=== PATIENT | male | born 1980 | race Caucasian/White ===

== ENCOUNTER 2016-07-22 22:15 | Emergency (ER) | payer MEDICAID ==
[~2016-07-22] VITALS: Ht 182.9 cm; Wt 95.3 kg
[2016-07-22 22:20] VITALS: BP 150/90
--- NOTE | 2016-07-22 22:26 | NUR ---
TO ER BED 8
--- NOTE | 2016-07-22 22:28 | NUR ---
PT PRESENTS TO ED WITH C/O SEVERE HEADACHE X3 DAYS. PT IS AAOX4, DENEIS CHEST PAIN, NO SOB/DISTRESS NOTED, CLEAR LUNG SOUNDS, ST ON MONITOR, C/O HEADACHE 10/10, SORE THOAT, AND NAUSEA. SKIN IS WARM AND DRY TO TOUCH, ABLE TO MOVE ALL EXTREMITIES. PT POSITIONED FOR COMFORT, HOB ELEVATED, BEDRAILS UP X2, ER MD MADE AWARE OF PT STATUS.
--- NOTE | 2016-07-22 22:45 | NUR ---
Patient being evaluated by physician at bedside.
[2016-07-22] MEDS ORDERED: KETOROLAC 30 MG/ML VIAL IVP ONE (22:50)
[2016-07-22] MEDS ORDERED: ONDANSETRON 4 MG/2 ML VIAL IVP ONE (22:50)
[2016-07-22] MEDS ORDERED: PENICILLIN G BENZATHINE L-A 1.2 MU/2 ML SYR IM ONE (22:50)
[2016-07-22] MEDS ORDERED: NACL 0.9% 1,000 ML IV ONE ×2 (22:50→23:50)
[2016-07-22] MEDS ORDERED: diphenhydrAMINE 50 MG/ML VIAL IVP ONE (23:30)
[2016-07-22] MEDS ORDERED: METOCLOPRAMIDE 10 MG/2 ML INJ VIAL IVP ONE (23:30)
[2016-07-23 00:20] VITALS: BP 131/69
--- NOTE | 2016-07-23 00:20 | NUR ---
Patient discharged with v/s stable. Written and verbal after care instructions given and explained. Patient alert, oriented and verbalized understanding of instructions. Ambulatory with [facility]IR[facility]END. All questions addressed prior to discharge. ID band removed. IV SITE REMOVED. Patient advised to follow up with PMD. Rx of ZOFRAN, PREDNISONE, NORCO, MOTRIN given. Patient educated on indication of medication including possible reaction and side effects. Opportunity to ask questions provided and answered.
== END 2016-07-23 00:20 | disposition home or self-care (01) ==
LOC: MED 22:15
DX: J11.1 Influenza due to unidentified influenza virus with other respiratory manifestations (principal)
CPT/HCPCS: 96361; 96372; 96374; 96375; 99285; J0561; J1200; J1885; J2405; J2765; J7030

== ENCOUNTER 2023-08-03 00:15 | Emergency (ER) | payer SELFPAY ==
[~2023-08-03] VITALS: Ht 182.9 cm; Wt 93.0 kg
[2023-08-03 00:36] VITALS: BP 163/112; PULSE 98; RESP 16; TEMP 97.6; O2SAT 99
[2023-08-03 00:55] VITALS: BP 163/112; PULSE 98; RESP 16; TEMP 97.6
[2023-08-03 00:56] VITALS: O2SAT 99
[2023-08-03] MEDS ORDERED: KETOROLAC 60 MG/2 ML VIAL IM ONE (01:19)
[2023-08-03] MEDS: KETOROLAC 60 MG/2 ML VIAL IM ONE (01:23)
[2023-08-03] MEDS ORDERED: IBUP-2213 PO (01:32)
== END 2023-08-03 01:55 | disposition home or self-care (01) ==
LOC: MED 00:15
DX: R07.89 Other chest pain (principal); F17.200 Nicotine dependence, unspecified, uncomplicated; Z72.89 Other problems related to lifestyle; Z79.899 Other long term (current) drug therapy
CPT/HCPCS: 93005; 96372; 99283; J1885